=== PATIENT | female | born 1985 | race Caucasian/White ===

== ENCOUNTER 2023-01-20 08:11 | Emergency (ER) | payer OTHER ==
--- NOTE | 2023-01-20 08:18 | NUR ---
called for triage, no answer
--- NOTE | 2023-01-20 08:28 | NUR ---
called for triage, no answer in the ER waiting room
--- NOTE | 2023-01-20 08:34 | NUR ---
called for triage, no answer in the waitin room or outside ER doors
== END 2023-01-20 08:36 | disposition left against medical advice (07) ==
LOC: ER 08:25
DX: Z53.21 Procedure and treatment not carried out due to patient leaving prior to being seen by health care provider (principal)